=== PATIENT | male | born 1995 | race Caucasian/White ===

== ENCOUNTER 2021-11-08 09:50 | Emergency (ER) | payer OTHER, SELFPAY ==
--- NOTE | ~2021-11-08 | XR_ITS ---
EXAMINATION: XR FINGER, RIGHT CLINICAL INFORMATION: Right middle finger pain. COMPARISON: None TECHNIQUE: 3 views of the right hand third digit. FINDINGS: There is no acute fracture or dislocation. The joint spaces are unremarkable. There is mild soft tissue swelling. No radiopaque foreign body. XR/XR finger RT min 2V IMPRESSION: Mild soft tissue swelling without radiopaque foreign body or acute underlying osseous abnormality.
[2021-11-08 09:53] VITALS: BP 135/87; PULSE 66; RESP 19; TEMP 36.8; O2SAT 98; BMI 35.1
[2021-11-08] MEDS: Diphth,Pertus(ACell),Tet Adult 0.5 ML SYRINGE IM (11:52)
[2021-11-08] MEDS: Lidocaine HCl 1 % MPF 2 ML VIAL INFILTRATI ×4 (11:55)
[2021-11-08] MEDS: cephALEXin 500 MG CAPSULE PO (12:22)
[2021-11-08] MEDS: Ibuprofen 600 MG TABLET PO (12:30)
--- NOTE | 2021-11-23 21:34 | ED_ITS ---
HPI - Extremity Problem General Chief complaint: Extremity Problem Stated complaint: Swollen finger Time Seen by Provider: 11/08/21 11:15 History of Present Illness HPI Narrative: Patient complains of swelling of right middle finger that has increased over several days he does recall cutting it on a piece of metal several days ago, denies fever and chills Related Data Previous Rx's Medication Instructions Recorded cephalexin 500 mg tablet 500 mg PO QID 7 days #28 tabs 11/08/21 doxycycline hyclate 100 mg capsule 100 mg PO BID 7 days #14 caps 11/08/21 ibuprofen 600 mg tablet 600 mg PO Q6H PRN pain #20 tabs 11/08/21 Allergies Allergy/AdvReac Type Severity Reaction Status Date / Time No Known Allergies Allergy Verified 11/08/21 11:15 Review of Systems Review of Systems: Positive for red swollen finger Negative no fever no chills no dizziness no weakness no headache no neck pain no chest pain Yes all other systems are reviewed and are negative PMFSH Past Medical History Source: nursing notes reviewed Social History Social History Advance Directives: No Advance Directives Information Provided: No Physical Exam Vital Signs: Vital Signs: Last Vital Signs Temp 98.2 F 11/08/21 09:53 Pulse 66 11/08/21 09:53 Resp 19 11/08/21 09:53 BP 135/87 11/08/21 09:53 Pulse Ox 98 11/08/21 09:53 O2 Del Method 11/08/21 09:53 BMI result Body Mass Index 35.1 General appearance no distress Head is normocephalic atraumatic Neck is supple Respiratory no distress Extremities full range of motion x4 Right middle finger there is some redness and swelling on the dorsum of the right middle finger distal phalanx, there does not seem to be any tenosynovitis , he can extend the finger fully there was no significant tenderness of the flexor tendon, most of the swelling is distal phalanx dorsal Other extremities normal Neuro no focal motor sensory deficits Course Course Course Narrative: Procedure note a digital block was done of the right 3rd finger with good anesthesia, it was cleansed with Betadine, a small lateral incision was made in the distal phalanx and probed for pus and there was discharge of significant pus which was expressed, no packing was placed a dressing was placed Patient will follow with [facility] in 2-3 days unless pain and swelling worsen or redness spreads Discharge Plan Discharge Clinical Impression: Cellulitis, Abscess Patient Disposition: Home, Self-Care Additional Instructions: You had an infected wound on her finger I drained some pus from it Follow with [facility] in 2-3 days for recheck or if they are unavailable r eturn to the ER for recheck Return any time for spreading redness worse pain and swelling, red stripe up arm any worse condition or any sign of any worsening infection Prescriptions: New cephalexin 500 mg tablet 500 mg PO QID 7 Days Qty: 28 0RF doxycycline hyclate 100 mg capsule 100 mg PO BID 7 Days Qty: 14 0RF ibuprofen 600 mg tablet 600 mg PO Q6H PRN (Reason: pain) Qty: 20 0RF Referrals: [facility] [Provider Group] (Infected cut on right middle finger, recheck) Interventions: ED Discharge Assessment Last Done: 11/08/21 12:32 Discharge Date/Time: 11/08/21 12:32
== END 2021-11-08 12:32 | disposition home or self-care (01) ==
PROVIDERS: Emergency Provider Emergency Medicine Emergency Medical Services
DX: S60.511A Abrasion of right hand, initial encounter (principal); M79.641 Pain in right hand; Z79.899 Other long term (current) drug therapy; W26.9XXA Contact with unspecified sharp object(s), initial encounter; Y93.9 Activity, unspecified; Y92.9 Unspecified place or not applicable; Y99.9 Unspecified external cause status
CPT/HCPCS: 73140; 87070; 87077; 87186; 87205; 90471; 90715; 99283; 99284

== ENCOUNTER 2023-02-18 23:01 | Emergency (ER) | payer OTHER, SELFPAY ==
--- NOTE | ~2023-02-18 | XR_ITS ---
EXAMINATION: XR ABDOMEN KUB CLINICAL INDICATION: Constipation. COMPARISON: None available. TECHNIQUE: AP view of the abdomen. FINDINGS: Nonobstructive bowel gas pattern. Mild degree of stool burden in the colon and rectum. No acute osseous findings. Visualized lung bases are clear. XR/XR KUB IMPRESSION: Nonobstructive bowel gas pattern. Mild degree of stool burden.
[2023-02-18 23:10] VITALS: BP 150/86; PULSE 76; RESP 19; TEMP 36.6; O2SAT 98; BMI 36.1
[2023-02-19 00:31] LABS: MANUAL DIFF FLAG NO
[2023-02-19 00:32] LABS: Basophils Percent Auto 0.3 % (0-2); Eosinophils Percent Auto 0.2 % (0-4); Hematocrit 43.9 % (42.0-52.0); Imm Gran Abs Auto 0.02 X10*3/uL (0.00-0.03); Imm Gran Pct Auto 0.2 % (0.0-0.4); Lymphocytes Absolute Auto 2.2 X10*3/uL (1.2-4.9); Lymphocytes Percent Auto 22.7 % (20-40); Mean Corpuscular HGB Conc 34.2 g/dl (31.0-36.0); Mean Corpuscular Volume 84.7 fL (80.0-98.0); Mean Platelet Volume 9.3 fL (9.4-12.4); Monocytes Absolute Auto 0.6 X10*3/uL (0.1-1.2); Monocytes Percent Auto 6.6 % (2-11); Neutrophils Absolute Auto 6.8 x10*3/uL (2.0-8.3); Platelet Count 318 X10*3/uL (160-400); Red Blood Count 5.18 X10*6/uL (4.60-5.80); White Blood Count 9.7 X10*3/uL (4.8-10.8)
[2023-02-19 00:48] LABS: Alanine Aminotransferase 40 U/L (0-40); Albumin Level 4.6 g/dL (3.5-5.0); Alkaline Phosphatase 60 U/L (39-117); Anion Gap 14 (12-20); Aspartate Amino Transferase 25 U/L (5-37); Bilirubin Direct 0.4 mg/dL (0.0-0.5); Bilirubin Total 1.1 mg/dL (0.0-1.0); Blood Urea Nitrogen 10 mg/dL (9-16); Calcium 10.1 mg/dL (8.4-10.2); Carbon Dioxide 28 mmol/L (22-29); Chloride 102 mmol/L (96-108); Creatinine Clr Calc Pharmacy 101.4; Estimated Glomerular Filt Rate > 60; Glucose Random 107 mg/dL (60-115); Lipase 9 U/L (8-78); Potassium 4.2 mmol/L (3.3-5.1); Sodium 140 mmol/L (135-145); Total Protein 8.4 g/dL (6.5-8.0)
[2023-02-19 02:20] VITALS: BP 130/68; PULSE 52; RESP 16; TEMP 36.7; O2SAT 97
--- NOTE | 2023-02-19 02:53 | ED_ITS ---
HPI - Nausea/Vomiting/Diarrhea General Chief complaint: Abdominal Pain Stated complaint: Severe abdominal pain Time Seen by Provider: 02/19/23 02:14 Source: patient and family Mode of arrival: ambulatory Limitations: no limitations History of Present Illness HPI Narrative: 27 yo male persistent n/v/d abdominal cramps after eating food at a [employer] no travel or abx use - attended event on Tuesday. no fevers MD elicited complaint: nausea, vomiting, diarrhea and abdominal pain Onset (ago): day(s) (since Tuesday) Description of vomiting: food contents and watery Description of diarrhea: watery Associated nausea: Yes Associated abdominal pain: Yes Location of pain: diffuse Radiation: diffuse Pain consistency: intermittent Severity: moderate Quality: cramping Exacerbating factors: eating Relieving factors: none Context: possible food poisoning Associated symptoms: loss of appetite, nausea/vomiting and other (diarrhea) Related Data Previous Rx's Medication Instructions Recorded cephalexin 500 mg tablet 500 mg PO QID 7 days #28 tabs 11/08/21 doxycycline hyclate 100 mg capsule 100 mg PO BID 7 days #14 caps 11/08/21 ibuprofen 600 mg tablet 600 mg PO Q6H PRN pain #20 tabs 11/08/21 ondansetron 4 mg disintegrating 4 mg PO Q8H PRN nausea and 02/19/23 tablet vomiting #20 tabs Allergies Allergy/AdvReac Type Severity Reaction Status Date / Time No Known Allergies Allergy Verified 11/08/21 11:15 Review of Systems 2 Review of Systems: Constitutional : No Weight loss, No Fever, No Chills ENT/Mouth : No sore throat, No Rhinorrhea Eyes: No Swelling, No Redness Cardiovascular : No Chest Pain, No SOB, NoEdema Respiratory : No Cough, No Sputum, No Wheezing Gastrointestinal : Positive Nausea, Positive Vomiting, positive Diarrhea, positive abdominal Pain, No Hematochezia, No Melena Genitourinary : No Dysuria, No Urinary Frequency, No Hematuria, No Urgency Musculoskeletal : No joint pain, No Myalgias, No Joint Swelling Skin : No Skin Lesions, No rash Neuro : No Weakness, No Numbness, No Dizziness, No Headache Psych : No Anxiety/Panic, No Depression Heme/Lymph: No Bruising, No Lymphadenopathy Endocrine : No Polyuria, No Polydipsia All other systems reviewed and are negative. Gastrointestinal: Gastrointestinal: Reports nausea PMFSH Past Medical History Attestation statement: The following information was validated with the patient. Onset Date is defined in the Problem List Problems that require an onset date and time if occurred within 24 hrs of arrival to the ED Aortic Dissection and Rupture; Neurologic impairment; Cardiopulmonary Arrest; Endotracheal Intubation; Insertion or Replacement of Mechanical Circulatory Assist Device Medical History No pertinent past medical history Social History Social History (Updated 02/19/23 @ 02:56 by Kari Cruz DO) Patient Tobacco Use Status: Never used Tobacco Advance Directives: No Advance Directives Information Provided: Yes Physical Exam 2 Vital Signs: Vital Signs: Last Vital Signs Temp 98.0 F 02/19/23 02:20 Pulse 52 02/19/23 02:20 Resp 16 02/19/23 02:20 BP 130/68 02/19/23 02:20 Pulse Ox 97 02/19/23 02:20 O2 Del Method Room Air 02/19/23 02:20 BMI result Body Mass Index 36.1 Appearance: Alert. Oriented X3. No acute distress. Eyes: Pupils equal, round and reactive to light. ENT: Pharynx normal. Neck: Normal inspection. Neck supple. CVS: Normal heart rate and rhythm. Pulses normal. Respiratory: No respiratory distress. Breath sounds normal. Abdomen: Soft and mild lower abdominal ttp Skin: Skin warm and dry. Normal skin color. Normal skin turgor. Extremities: No lower extremity edema. No calf ttp Neuro: Oriented X 3. No motor deficit. No sensory deficit. Medications Administered Discontinued Medications Generic Name Dose Route Start Last Admin Trade Name Freq PRN Reason Stop Dose Admin Sodium Chloride 1,000 mls @ 999 mls/hr 02/19/23 03:00 02/19/23 03:35 Ns IV 02/19/23 04:00 999 mls/hr .Q1H1M STEPAN Administration Ketorolac Tromethamine 15 mg 02/19/23 02:49 02/19/23 03:39 Ketorolac Tromethamine 15 Mg/Ml Vial IVPUSH 02/19/23 02:50 15 mg ONCE ONE Administration Ondansetron HCl 4 mg 02/19/23 02:49 02/19/23 03:39 Ondansetron Hcl 4 Mg/2 Ml Vial IVPUSH 02/19/23 02:50 4 mg ONCE ONE Administration Medical Decision Making Medical Decision Making MDM Narrative: 27 yo male with no sig PMH here with n/v/d after eating at a [employer] at this time will need labs viral panel has no localized ttp to suggest cholecystititis or appendicitis no travel or abx use. Possible viral vs food toxicity Differential Diagnosis Differential Diagnoses: The differential diagnosis associated with the presentation includes viral syndrome, dehydration, food toxicity Admission/Observation Consideration of admission/observation: Escalation of care including admission/observation considered able to tolerate PO feels much better stable for DC Lab Data [facility] Lab Attestation statement: I reviewed the patient's lab results. 02/19/23 00:26 02/19/23 00:26 Labs: Lab Results 02/19/23 02/19/23 Range/Units 00:26 03:25 WBC 9.7 (4.8-10.8) X10*3/uL RBC 5.18 (4.60-5.80) X10*6/uL Hgb 15.0 (14.0-18.0) g/dl Hct 43.9 (42.0-52.0) % MCV 84.7 (80.0-98.0) fL MCH 29.0 (27.0-33.0) pg MCHC 34.2 (31.0-36.0) g/dl RDW 13.0 (11.0-16.0) % Plt Count 318 (160-400) X10*3/uL MPV 9.3 L (9.4-12.4) fL Immature Gran % (Auto) 0.2 (0.0-0.4) % Neut % (Auto) 70.0 (45-73) % Lymph % (Auto) 22.7 (20-40) % Lawrence % (Auto) 6.6 (2-11) % Eos % (Auto) 0.2 (0-4) % Baso % (Auto) 0.3 (0-2) % Lymph # (Auto) 2.2 (1.2-4.9) X10*3/uL Lawrence # (Auto) 0.6 (0.1-1.2) X10*3/uL Eos # (Auto) 0.0 (0.0-0.4) X10*3/uL Baso # (Auto) 0.0 (0.0-0.2) X10*3/uL Abs Immat Gran (auto) 0.02 (0.00-0.03) X10*3/uL Absolute Neuts (auto) 6.8 (2.0-8.3) x10*3/uL Absolute Nucleated RBC 0.000 (0.0-0.012) X10*3/uL Nucleated RBC % (auto) 0.0 (0.0-0.2) /100WBC Sodium 140 (135-145) mmol/L Potassium 4.2 (3.3-5.1) mmol/L Chloride 102 (96-108) mmol/L Carbon Dioxide 28 (22-29) mmol/L Anion Gap 14 (12-20) BUN 10 (9-16) mg/dL Creatinine 1.15 (0.5-1.4) mg/dL Estim Creat Clear Calc 101.4 Estimated GFR > 60 Random Glucose 107 (60-115) mg/dL Calcium 10.1 (8.4-10.2) mg/dL Total Bilirubin 1.1 H (0.0-1.0) mg/dL Direct Bilirubin 0.4 (0.0-0.5) mg/dL AST 25 (5-37) U/L ALT 40 (0-40) U/L Alkaline Phosphatase 60 (39-117) U/L Total Protein 8.4 H (6.5-8.0) g/dL Albumin 4.6 (3.5-5.0) g/dL Lipase 9 (8-78) U/L COVID-19 ([facility]WAY[facility]) Negative (Negative) COVID-19 Clin Com See Note Influenza Type A (BETY) Negative (Negative) Influenza Type B (BETY) Negative (Negative) Influenza A & B Note See Note Independent Historian Clinical information obtained from an independent historian. History obtained from or confirmed by: Parent Prescription Management I considered prescription management with: Other Discharge Plan Discharge Clinical Impression: Vomiting Qualifiers: Vomiting type: unspecified Nausea presence: with nausea Qualified Code(s): R 11.2 - Nausea with vomiting, unspecified Diarrhea Qualifiers: Diarrhea type: unspecified type Qualified Code(s): R19.7 - Diarrhea, unspecified Patient Disposition: Home, Self-Care Instructions: Acute Nausea and Vomiting (ED), Acute Diarrhea (ED) Additional Instructions: return for worsening pain, fevers, inability to eat or drink, bloody stools or any other concerns. advance diet slowly over 48 hours - bananas apple sauce rice toast avoid dairy except yogurt is okay for 3 days then advance slowly Prescriptions: New ondansetron 4 mg tablet,disintegrating 4 mg PO Q8H PRN (Reason: nausea and vomiting) Qty: 20 0RF No Action cephalexin 500 mg tablet 500 mg PO QID 7 Days Qty: 28 0RF doxycycline hyclate 100 mg capsule 100 mg PO BID 7 Days Qty: 14 0RF ibuprofen 600 mg tablet 600 mg PO Q6H PRN (Reason: pain) Qty: 20 0RF
[2023-02-19] MEDS: 0.9 % Sodium Chloride 1,000 ML 999 ML IV (03:35)
[2023-02-19] MEDS: Ketorolac Tromethamine 15 MG/ML VIAL IVPUSH (03:39)
[2023-02-19] MEDS: ondansetron HCL 4 MG/2 ML VIAL IVPUSH (03:39)
[2023-02-19 03:48] LABS: COVID-19 Test Negative (Negative); IDNOW Serial# 08D9AD1C; IDNOW Serial# 152EDE1D; Influenza A Negative (Negative); Influenza B2 Negative (Negative)
== END 2023-02-19 05:15 | disposition home or self-care (01) ==
PROVIDERS: Emergency Provider Emergency Medicine
DX: R11.2 Nausea with vomiting, unspecified (principal); R19.7 Diarrhea, unspecified; Z11.52 Encounter for screening for COVID-19
CPT/HCPCS: 36415; 74018; 80053; 82248; 83690; 85025; 87502; 87635; 96374; 96375; 99284; J1885; J2405

== ENCOUNTER 2023-02-21 07:00 | Outpatient (RCR) | payer OTHER, SELFPAY | END 2023-03-09 11:19 | disposition home or self-care (01) | LOC: HO.OT 07:00 | PROVIDERS: Visit Provider Plastic Surgery | DX: Z98.890 Other specified postprocedural states (principal) | CPT/HCPCS: 29130; 97110; 97140; 97165; 97760 ==

== ENCOUNTER 2025-01-06 14:09 | Emergency (ER) | payer OTHER, SELFPAY ==
[2025-01-06 14:21] VITALS: BP 148/71; PULSE 90; RESP 18; TEMP 36.8; O2SAT 100; BMI 39.5
--- NOTE | 2025-01-06 14:51 | ED_ITS ---
HPI - General Adult General Chief complaint: Skin/Abscess/Foreign Body Stated complaint: Injury Time Seen by Provider: 01/06/25 20:10 Source: patient Mode of arrival: ambulatory Limitations: no limitations History of Present Illness ED Provider: Abdifatah TREVIZO HPI narrative: The patient is a 29-year-old male who presents to the ED for evaluation of a worsening welling of his right cheek. The swelling was described as consistent with an ingrown hair which began approximately 10 days ago and has enlarged over the past three days since he attempted to manually express the area with scant amounts of purulent material expressed. Earlier today he was seen at an urgent care where an attempted incision and drainage (scalpel with local anesthesia) was performed but produced no meaningful drainage, and patient was referred to the ED, no antibiotics were prescribed. The patient denies fevers, chills, nausea, vomiting, or other systemic complaint. He has not taken any OTC anti-inflammatories or other medications for the complaint, patient has not applied any ice or moist compresses. Related Data Previous Rx's ?Medication ?Instructions ?Recorded cephalexin 500 mg tablet 500 mg PO QID 7 days #28 tab s 11/08/21 doxycycline hyclate 100 mg capsule 100 mg PO BID 7 day s #14 caps 11/08/21 ibuprofen 600 mg tablet 600 mg PO Q6H PRN pain #20 t abs 11/08/21 dicyclomine 20 mg tablet 20 mg PO BID PRN abdominal p ain 02/19/23 #14 tabs famotidine 20 mg tablet (Pepcid) 20 mg PO DAILY PRN ab dominal 02/19/23 discomfort #30 tabs ondansetron 4 mg disintegrating 4 mg PO Q8H PRN nausea and 02/19/23 tablet vomiting #20 tabs acetaminophen 500 mg capsule 1,000 mg (2 x 500 mg) PO .q8 PRN 01/06/25 fever or pain #30 caps cephalexin 500 mg capsule 500 mg PO QID #28 caps 01/06 ibuprofen 600 mg tablet 600 mg PO Q8H PRN fever or p ain 01/06/25 #30 tabs Allergies Allergy/AdvReac Type Severity Reaction Status Date / Time No Known Allergies Allergy Verified 01/06/25 14:25 Review of Systems Review of Systems: Yes all other systems are reviewed and are negative PMFSH Past Medical History Medical History No pertinent past medical history Social History Social History (Updated 02/19/23 @ 02:56 by Kari Cruz DO) Patient Tobacco Use Status: Never used Tobacco Smoked in Last 30 Days: No Use of substances other than those prescribed or required for medical reasons: No Advance Directives: No Advance Directives Information Provided: No Physical Exam ED Vital Signs: Vital Signs - 24 hr 01/06/25 14:21 01/06/25 20:46 01/06/25 21:15 Temperature 98.3 F 0 F L Pulse Rate 90 65 65 Respiratory Rate 18 16 16 Blood Pressure 148/71 H 144/77 H 144/77 H Pulse Oximetry 100 100 100 Oxygen Delivery Method Room Air Room Air Room Air BMI result Body Mass Index 39.5 CONSTITUTIONAL: The patient appears non-toxic, well nourished and in no acute distress. Vital signs as documented. HEAD: Atraumatic, normocephalic. EYES: EOMs grossly intact, pupils equal, conjunctiva clear, no exudate. ENT: Nares patent, no discharge. Airway patent, no audible stridor, visible mucosa is pink and moist without noted lesions. NECK: trachea is midline, no obvious masses or gross abnormalities. CHEST: Symmetric movement, normal appearance. LUNGS: Non-labored work of breathing. CARDIAC: No evidence of hypoperfusion. ABDOMEN: Nondistended, no obvious injury. : Deferred. EXTREMITIES: Moves all extremities spontaneously without reported pain. No obvious injury or deformity noted. NEURO: Alert and oriented x3, CN II-XII appear grossly intact. Cerebellar Functioning grossly intact. Speech clear and appropriate. SKIN: There is a 1.5 cm ovoid area of induration noted to the right cheek approximately 2 cm lateral to the right corner of the mouth. There is no active drainage from the cheek or buccal mucosa. There is no fluctuance noted. Skin is otherwise warm, dry, color appropriate. No other rashes or lesions noted. Course Course Course Narrative: Medical screening exam performed. Please refer to detailed history, exam, evaluation, and management by primary provider. Haircut approximately a week and a half ago. Swelling to area of the right side of his cheek, seen at urgent care today where attempt to I and D that was unsuccessful. Sent to the ED for further evaluation. Medications Administered Discontinued Medications Generic Name Dose Route Start Last Admin Trade Name Waqar PRN Reason Stop Dose Admin Acetaminophen 975 mg 01/06/25 20:39 01/06/25 20:48 Acetaminophen 325 Mg Tablet PO 01/06/25 20:40 975 mg ONCE ONE Administration Cephalexin HCl 500 mg 01/06/25 20:39 01/06/25 20:48 Cephalexin 500 Mg Capsule PO 01/06/25 20:40 500 mg ONCE ONE Administration Ibuprofen 600 mg 01/06/25 20:39 01/06/25 20:47 Ibuprofen 600 Mg Tablet PO 01/06/25 20:40 600 mg ONCE ONE Administration Medical Decision Making Medical Decision Making [facility] Narrative: 8:42 PM 01/06/2025 (Anne TREVIZO): The patient is a 29-year-old male who presents to the ED for evaluation of a worsening welling of his right cheek. The swelling was described as consistent with an ingrown hair which began approximately 10 days ago and has enlarged over the past three days since he attempted to manually express the area with scant amounts of purulent material expressed. Earlier today he was seen at an urgent care where an attempted incision and drainage (scalpel with local anesthesia) was performed but produced no meaningful drainage, and patient was referred to the ED, no antibiotics were prescribed. The patient denies fevers, chills, nausea, vomiting, or other systemic complaint. He has not taken any OTC anti-inflammatories or other medications for the complaint, patient has not applied any ice or moist compresses. On exam the patient is nontoxic. There is a 1.5 cm ovoid area of induration noted to the right cheek approximately 2 cm lateral to the right corner of the mouth. There is no active drainage from the cheek or buccal mucosa. There is no fluctuance noted. Patient's vital signs are reassuring, no tachycardia, tachypnea, hypotension, or fever. Bedside point of care ultrasound was performed and demonstrated mostly cobblestoning with a small irregular appearing area of fluid measuring only 6 mm in its maximum diameter, findings more consistent with cellulitis than formed abscess amenable to drainage. The patient was shown the ultrasound results and provided recommendations for antibiotics, anti-inflammatories, and ice/moist compresses. Upon receiving this information the patient became verbally argumentative with this provider, making sarcastic comments about the expected duration of the care plan. Patient was reassured that this would be an effective care plan, and that it would be inappropriate to repeat an attempt at incision and drainage that was already unsuccessful at urgent care, and unlikely to yield successful results based on ultrasound findings. The patient once again expressed his dissatisfaction with the timeline of the proposed care plan, but ultimately agreed to the recommendations. Patient will be treated with cephalexin, Motrin, Tylenol, and discharged with the same. Patient was also instructed to alternate applying ice and warm compresses to the area. The patient was educated on expected duration until start of improvement, and ultimate resolution of symptoms, patient was also provided return precaution instructions. Additionally patient was provided with ENT clinic contact information for follow-up should symptoms not improve following 7 days of antibiotics. Admission/Observation Consideration of admission/observation: Escalation of care including admission/observation considered Independent Interpretation I performed an independent interpretation of an: Ultrasound (Bedside US demonstrated mostly cobblestoning with a small irregular appearing area of fluid measuring only 6 mm in its maximum diameter, findings more consistent with cellulitis than a formed abscess amenable to drainage.) External Record Review External record reviewed: Outpatient record and Prior outpatient labs Prescription Management I considered prescription management with: Pain Medication and Antibiotic Discharge Plan Discharge Clinical Impression: Cellulitis Qualifiers: Site of cellulitis: face Qualified Code(s): L03.211 - Cellulitis of face Patient Disposition: Home, Self-Care Instructions: Cellulitis (ED), Warm Compress or Soak (ED) Additional Instructions: Thank you for choosing [facility]'s Emergency Department for your care today. Thankfully your exam, bedside ultrasound, and vital signs today are reassuring. At this time there is no indication for admission to the hospital or continued ED observation, and it is safe to discharge you home. Your exam and bedside ultrasound showed that your symptoms are more likely being caused by a cellulitis (infection amongst skin cells, from your recent ingrown hair, rather than a formed abscess. As such a repeat attempt at incision and drainage of the area is unlikely to result in any expression of fluid and unlike ly to provide you relief. Cellulitis is better treated by antibiotic and anti-inflammatory therapy. Please take cephalexin 4 times a day as prescribed until finished. It is extremely important that you take alternating (staggered) doses of ibuprofen 600mg and Tylenol 1000mg every 4 hours as needed for any additional pain. Should also alternate applying ice and warm moist compresses to the area. Your symptoms should begin to improve in the next 2-3 days. If your symptoms have not improved in the next 5-7 days please contact our ENT Clinic for re- evaluation and additional management. Please follow up with your primary care physician for re-evaluation, additional management of your symptoms, and continued preventative care. If you do not have a primary care physician, please call the [facility] at [phone] to establish a new primary care physician. While waiting to establish your new primary care physician, you can call our Walk-in Care Clinic at [phone] for non-emergency needs. Please return to the emergency department if you develop a severe or sudden change in your symptoms, a fever over 100.4 that does not improve with Tylenol or Ibuprofen, recurrent vomiting, or if symptoms are not improving after 5-7 days and you are unable to follow up with the ENT clinic or your primary care provider.. Prescriptions: New acetaminophen 500 mg capsule 1,000 mg PO .q8 PRN (Reason: fever or pain) Qty: 30 0RF cephalexin 500 mg capsule 500 mg PO QID Qty: 28 0RF ibuprofen 600 mg tablet 600 mg PO Q8H PRN (Reason: fever or pain) Qty: 30 0RF No Action cephalexin 500 mg tablet 500 mg PO QID 7 Days Qty: 28 0RF doxycycline hyclate 100 mg capsule 100 mg PO BID 7 Days Qty: 14 0RF ibuprofen 600 mg tablet 600 mg PO Q6H PRN (Reason: pain) Qty: 20 0RF ondansetron 4 mg tablet,disintegrating 4 mg PO Q8H PRN (Reason: nausea and vomiting) Qty: 20 0RF dicyclomine 20 mg tablet 20 mg PO BID PRN (Reason: abdominal pain) Qty: 14 0RF famotidine [Pepcid] 20 mg tablet 20 mg PO DAILY PRN (Reason: abdominal discomfort) Qty: 30 0RF Referrals: [facility] [place] Otolaryngology [Provider Group] Clinical Impression: Cellulitis Yariel Lucero MD [Primary Care Provider, Internal Medicine] Clinical Impression: Cellulitis Interventions: ED Discharge Assessment Last Done: 01/06/25 21:15 Discharge Date/Time: 01/06/25 21:17 Print Language: Faroese
--- OUTSIDE RECORDS SUMMARY | 2025-01-06 19:34 | XMS_ITS | Patient Health Record ---
Author Organization [facility] Address [address] [place] [address] Care Team Providers Care Public Policy Mediator Name Role Phone JACKELINE VILLALOBOS Unavailable [phone] Allergies No Known Allergies Reason For Referral No Information Medications Medication SIG (Take, Route, Frequency, Duration) Notes Start Date End Date Status Clotrimazole-Betamethaso ne 1-0.05 % Cream for two weeks Externally Twice a day; Duration: 30 days 05/19/2020 Active Lotrimin AF Powder A ctive Mupirocin 2 % Ointment 1 application Ext ernally Twice a day; Duration: 5 day(s) 02/02/2022 Active Doxycycline Hyclate 100 MG Tablet 1 tablet Orally Twice a day; Duration: 10 day(s) 01/12/2022 Not-[place] Social History Tobacco Use: Social History Observation Description Date Details (start date - stop date) Current Smoker NA - NA Social History Drugs/Alcohol: Social Info Question Answer Notes Drugs Have you used drugs other than those for medical reasons in the past 12 months? Yes Marijuana? Yes Tobacco Use: Social Info Question Answer Notes Tobacco Use/Smoking Are you a current smoker How often do you smoke cigarettes? some days, but not every day Additional Details Category Social Info Options Details Drugs/Alcohol: Do you smoke marijuana? Ad mits, everyday Do you drink alcohol? Yes, Socia lly Section Notes: Smoker once 1 to 2 cigarette s a day when working works in [employer] Smoker once 1 to 2 cigarette s a day when working works in [employer] Problems Problem Type SNOMED Code ICD Code Onset Dates Problem Status W/U Status Risk Notes Problem Information temporarily unavailable Other obesity due to excess calories (E66.09) Active confirmed Problem Information temporarily unavailable Vitamin D deficiency (E55.9) Active confirmed Problem Information temporarily unavailable Body mass index [BMI]30.0-30.9, adult (Z68.30) Active confirmed Plan Of Treatment Pending Test Test Name Order Date 25OH VITAMIN D 05/19/2020 CBC (COMPLETE BLOOD COUNT) 05/19/2020 COMPREHENSIVE METABOLIC PANEL 05/19/2020 HEMOGLOBIN A1C 05/19/2020 LIPID PANEL 05/19/2020 VITAMIN B12 05/19/2020 LIPID PANEL, STANDARD 12/02/2021 COMPREHENSIVE METABOLIC PANEL 12/02/2021 CBC (INCLUDES DIFF/PLT) 12/02/2021 URINALYSIS, COMPLETE 12/02/2021 HEMOGLOBIN A1c 12/02/2021 VITAMIN B12 12/02/2021 VITAMIN D,25-OH,TOTAL,IA 12/02/2021 COMPLETE URINALYSIS 05/19/2020 Insurance Providers Payer Name Payer Address Payer Phone Subscriber Number Group Number Insured Name Patient Relationship to Insured Coverage Start Date Coverage End Date [employer] [address] meena mccormack [id number] [id number] Avtar Abdul Self - patient is the insured Medical (General) History Medical History History ICD Code refractory tinea pedis Hospitalization History Reason Date(Month/Year) [facility] 2020
[2025-01-06 20:46] VITALS: BP 144/77; PULSE 65; RESP 16; O2SAT 100
[2025-01-06 21:15] VITALS: BP 144/77; PULSE 65; RESP 16; TEMP -17.7; TEMP 0; O2SAT 100
== END 2025-01-06 21:17 | disposition home or self-care (01) ==
PROVIDERS: Emergency Provider Emergency Medicine Emergency Medical Services; PCP Internal Medicine
DX: L03.211 Cellulitis of face (principal)
CPT/HCPCS: 99283; 99284